=== PATIENT | female | born 1965 | race African-American/Black ===

== ENCOUNTER 2018-11-17 21:22 | Emergency (ER) | payer BC, SELFPAY ==
[2018-11-17] MEDS ORDERED: DIAZEPAM 2 MG TABLET ONE (21:59)
[2018-11-17] MEDS ORDERED: KETOROLAC 30 MG/ML INJ ONE (21:59)
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
[2018-11-18 00:21] VITALS: TEMP 98
[2018-11-18 00:22] VITALS: BP 124/78; O2SAT 100
== END 2018-11-17 22:36 | disposition home or self-care (01) ==
LOC: ER 21:22
DX: R07.9 Chest pain, unspecified (principal); M54.5 Low back pain; V49.40XA Driver injured in collision with unspecified motor vehicles in traffic accident, initial encounter
CPT/HCPCS: 71045; 96372; 99284

== ENCOUNTER 2022-10-03 15:26 | Emergency (ER) | payer BC ==
--- OUTSIDE RECORDS SUMMARY | 2022-10-03 15:28 | XMS REPORT | Continuity of Care Document ---
:1965 Author Organization [facility] t Address [facility] [address] [place] [address] Care Team Providers Name Role Phone Vanessa_Grant Attending Clinician Unavailable Vanessa_Grant Admitting Clinician Unavailable Payers Payer Name Policy Type Policy Number Effective Date Expiration Date S christian [place]: BCBS [facility] [id number] 2017 - [employer] (POS) 00:00:00 Problems Condition Condition Condition Status Onset Resolution Last Treating Co mments Source Name Details Category Date Date Treatment Clinician Date COVID-19 Covid-19 Problem Active [facility] 00:00: [facility] 00 Group Allergies, Adverse Reactions, Alerts This patient has no known allergies or adverse reactions. Social History Smoking Status Start Date Stop Date Source Former Smoker [facility] Medications This patient has no known medications. Vital Signs Vital Name Observation Time Observation Value Comments Source BMI (Body Mass 2020-11-21 00:00:00 56.8 kg/m2 [facility] Group BP Systolic 2020-11-21 00:00:00 164 mm[Hg] [facility] Body Weight 2020-11-21 00:00:00 5799 [oz_av] [facility] BP Diastolic 2020-11-21 00:00:00 92 mm[Hg] [facility] Height 2020-11-21 00:00:00 67 [in_i] [facility] Procedures Procedure Date / Time Performing Clinician Source Performed Tubal Ligation [facility] Embolization of Uterine [facility] Fibroid Using Group Fluoroscopic Guidance Plan of Care Planned Activity Planned Date Details Comments Source Diagnostic Test 2020-11-21 rapid strep group A, [facility] Pending 00:00:00 throat [code = rapid Group strep group A, throat] Diagnostic Test 2020-11-21 rapid SARS CoV + [facility] Pending 00:00:00 SARS CoV 2 Ag, QL Group IA, respiratory specimen [code = rapid SARS CoV + SARS CoV 2 Ag, QL IA, respiratory specimen] Instructions [facility] Encounters Start End Encounter Admission Attending Care Care Encounter Source Date/Time Date/Time Type Type Clinicians Facility Department ID 2020-11-23 2020-11-23 Outpatient [facility] [id number] [facility] 07:18:00 07:18:00 [facility] 2020-11-21 2020-11-21 Surekha Major [facility] [place] - [id number] [facility] 00:00:00 00:00:00 [facility] [address] [place]: [address], [place] [address] , Ph. Results Test Description Test Time Test Comments Results Result Comments Source rapid strep group A, throat 2020-11-21 16:18:00 Test Item Value Reference Range Interpretation Comme nts Strep Result (test code = Strep Result) negative [facility]
[2022-10-03] MEDS ORDERED: HYDROCODONE/CHLORPHEN 5 ML/OSYR ONE (16:10)
[2022-10-03] MEDS ORDERED: IBUPROFEN 200 MG TAB PO ONE (16:11)
[2022-10-03 17:49] LABS: SARS-COV-2 RT PCR POSITIVE (NEGATIVE)
--- NOTE | 2022-10-03 17:55 | EDPHYS ---
Physician Documentation [facility] Name: Trina Davenport Age: 57 yrs Sex: Female : 1965 Arrival Date: 10/03/2022 Time: 15:29 Bed DIS1 Private MD: ED Physician Jose Montanez HPI: 10/03 15:38 This 57 yrs old Black Female presents to ER via Ambulatory with complaints of Flu pm1 Symptoms. 16:31 The patient or guardian reports flu symptoms, stuffy nose, cough, body aches. Onset: pm1 The symptoms/episode began/occurred yesterday. Severity of symptoms: in the emergency department the symptoms are actually worse. Modifying factors: The symptoms are alleviated by ibuprofen for the body aches. Associated signs and symptoms: Pertinent positives: clear sputum, Pertinent negatives: chest pain, sore throat, shortness of breath. The patient has experienced similar episodes in the past, patient reports positive for covid 2 times before in the past and feels similar. The patient has not recently seen a physician. Historical: - Allergies: 15:33 No Known Allergies; aa5 - Home Meds: 15:36 None [Active]; aa5 - PMHx: 15:36 None; aa5 - Immunization history:: Client reports receiving the 2nd dose of the Covid vaccine. - Social history:: Smoking status: Patient denies any tobacco usage or history of. ROS: 16:31 Eyes: Negative for injury, pain, redness, and discharge. pm1 16:31 Neck: Negative for injury, pain, and swelling, Cardiovascular: Negative for chest pain, palpitations, and edema. 16:31 Abdomen/GI: Negative for abdominal pain, nausea, vomiting, diarrhea, and constipation, Back: Negative for injury and pain, MS/Extremity: Negative for injury and deformity, Skin: Negative for injury, rash, and discoloration, Neuro: Negative for headache, weakness, numbness, tingling, and seizure. 16:31 Constitutional: Positive for body aches, Negative for fever, poor PO intake. 16:31 ENT: Positive for nasal congestion, Negative for ear pain, sore throat. 16:31 Respiratory: Positive for cough, Negative for shortness of breath. 16:31 All other systems are negative. Exam: 16:31 Constitutional: This is a well developed, well nourished patient who is awake, alert, pm1 and in no acute distress. Head/Face: Normocephalic, atraumatic. 16:31 Skin: Warm, dry with normal turgor. Normal color with no rashes, no lesions, and no evidence of cellulitis. MS/ Extremity: Pulses equal, no cyanosis. Neurovascular intact. Full, normal range of motion. 16:31 Cardiovascular: Exam negative for acute changes, Rate: normal, Rhythm: regular, Pulses: no pulse deficits are appreciated. 16:31 Respiratory: Exam negative for acute changes, respiratory distress, shortness of breath, Breath sounds: are clear throughout. 16:31 Neuro: Exam negative for acute changes, Orientation: is normal, Mentation: is normal, Motor: moves all fours, Gait: is steady, at a normal pace, without difficulty. Vital Signs: 15:34 BP 148 / 75; Pulse 92; Resp 20 S; Temp 98.0(TE); Pulse Ox 99% on R/A; aa5 MDM: 15:29 Patient medically screened. pm1 16:32 ED course: Patient's symptoms improved with medications given in the ER, pending flu pm1 and covid results for disposition and informed patient of strep results. 17:52 Data reviewed: vital signs. pm1 17:52 Counseling: I had a detailed discussion with the patient and/or guardian regarding: the pm1 historical points, exam findings, and any diagnostic results supporting the discharge/admit diagnosis, lab results, to return to the emergency department if symptoms worsen or persist or if there are any questions or concerns that arise at home. 18:00 ED course: [place] reviewed. pm1 18:00 Differential Diagnosis: Other covid, flu, URI, strep. pm1 10/03 15:38 Order name: COVID-19/FLU A+B; Complete Time: 17:52 pm1 10/03 15:38 Order name: Strep; Complete Time: 16:25 pm1 10/03 16:23 Order name: Throat Culture EDMS Administered Medications: 16:12 Drug: Tussionex Pennkinetic ER (chlorpheniramine-hydrocodone) Suspension 5 ml Route: PO;iw 16:12 Drug: Ibuprofen 600 mg Route: PO; iw Disposition: 18:51 I reviewed the patient's care provided by the Advanced Practice Provider and agree with jr11 the diagnosis and treatment plan. Disposition Summary: 10/03/22 17:55 Discharge Ordered Location: Home pm1 Problem: new pm1 Symptoms: have improved pm1 Condition: Stable pm1 Diagnosis - Coronavirus infection, unspecified pm1 Followup: pm1 - With: Emergency Department - When: As needed - Reason: Worsening of condition Followup: pm1 - With: Private Physician - When: 2 - 3 days - Reason: Recheck today's complaints, Continuance of care, Re-evaluation by your physician Discharge Instructions: - Discharge Summary Sheet pm1 - COVID-19 pm1 - COVID-19 Frequently Asked Questions pm1 - 10 Things You Can Do to Manage Your COVID-19 Symptoms at Home - [facility] pm1 Forms: - Medication Reconciliation Form pm1 - Thank You Letter pm1 - Antibiotic Education pm1 - Prescription Opioid Use pm1 Prescriptions: - Guaifenesin AC 10-100 mg/5 mL Oral Liquid - take 10 milliliters by ORAL route every 4 hours As needed; 240 milliliter; pm1 Refills: 0, Product Selection Permitted Signatures: Dispatcher [employer] Ellie Damon, TAHIR HARO iw Yara Qiu RN RN aa5 Porfirio Perera, BLADDER BLOWER BLADDER BLOWER pm1 Jose Montanez MD MD jr11
--- NOTE | 2022-10-03 17:55 | ER ---
Nurse's Notes [facility] Name: Trina Davenport Age: 57 yrs Sex: Female : 1965 Arrival Date: 10/03/2022 Time: 15:29 Bed DIS1 Private MD: Diagnosis: Coronavirus infection, unspecified Presentation: 10/03 15:34 Chief complaint: Patient states: body aches, cough, congestion that began yesterday. aa5 Coronavirus screen: congestion, cough unrelated to allergies. Ebola Screen: Patient denies travel to an Ebola-affected area in the 21 days before illness onset. Initial Sepsis Screen: Does the patient meet any 2 criteria? HR > 90 bpm. Does the patient have a suspected source of infection? No. Patient's initial sepsis screen is negative. Risk Assessment: Do you want to hurt yourself or someone else? Patient reports no desire to harm self or others. Onset of symptoms was September 2022. 15:34 Acuity: VALERY 4 aa5 15:34 Method Of Arrival: Ambulatory aa5 Historical: - Allergies: 15:33 No Known Allergies; aa5 - Home Meds: 15:36 None [Active]; aa5 - PMHx: 15:36 None; aa5 - Immunization history:: Client reports receiving the 2nd dose of the Covid vaccine. - Social history:: Smoking status: Patient denies any tobacco usage or history of. Vital Signs: 15:34 BP 148 / 75; Pulse 92; Resp 20 S; Temp 98.0(TE); Pulse Ox 99% on R/A; aa5 ED Course: 15:29 Patient arrived in ED. am2 15:29 Porfirio Perera NP is PHCP. pm1 15:29 Jose Montanez MD is Attending Physician. pm1 15:34 Arm band placed on. aa5 15:35 Triage completed. aa5 15:46 Ellie Davenport RN is Primary Nurse. iw Administered Medications: 16:12 Drug: Tussionex Pennkinetic ER (chlorpheniramine-hydrocodone) Suspension 5 ml Route: PO;iw 16:12 Drug: Ibuprofen 600 mg Route: PO; iw Outcome: 17:55 Discharge ordered by MD. pm1 18:20 Patient left the ED. kc6 Signatures: Ellie Davenport, RN RN iw Yara Qiu RN RN aa5 Porfirio Perera, GLASSWARE SELECTOR GLASSWARE SELECTOR pm1 Rosy Inman am2 Naomy Chavira, RN RN kc6
[2022-10-03 19:02] VITALS: BP 148/75; TEMP 98; O2SAT 99
== END 2022-10-03 18:20 | disposition home or self-care (01) ==
LOC: ER 15:26
DX: U07.1 COVID-19 (principal)
CPT/HCPCS: 87070; 87081; 0240U; 99282